=== PATIENT | female | born 1985 | race Caucasian/White ===

== ENCOUNTER 2016-04-28 08:37 | Day surgery (SDC) | payer MEDICAID, OTHER ==
[2016-04-28] MEDS ORDERED: CEFAZOLIN SODIUM 1 GM in NORMAL SALINE MINI-BAG+ 100 ML IV ONE ×2 (08:44→08:50)
[2016-04-28] MEDS ORDERED: LIDOCAINE HCL 1% 20 ML VIAL SUBCUT ONE ×2 (08:48→08:50)
[2016-04-28] MEDS ORDERED: MIDAZOLAM HCL 2 MG/2 ML SYR IV ONE ×2 (08:48→08:50)
[2016-04-28] MEDS ORDERED: ACETAMINOPHEN 1,000 MG/100 ML VIAL IV SCH ×2 (09:00)
[2016-04-28] MEDS ORDERED: FAMOTIDINE IN SALINE, ISO-OSM 20 MG/50 ML PIGGYBACK IV SCH (09:00)
[2016-04-28] MEDS ORDERED: LACTATED RINGERS 1,000 ML IV SCH ×3 (09:00→11:00)
[2016-04-28] MEDS ORDERED: MIDAZOLAM HCL 2 MG/2 ML VIAL ONE (09:22)
[2016-04-28] MEDS ORDERED: CEFAZOLIN SODIUM 1 GM/10 ML VIAL ONE (09:23)
[2016-04-28] MEDS ORDERED: ONDANSETRON HCL 4 MG/2 ML VIAL ONE (09:43)
[2016-04-28] MEDS ORDERED: DEXAMETHASONE 4 MG/ML VIAL ONE (09:43)
[2016-04-28] MEDS ORDERED: FENTANYL 100 MCG/2 ML VIAL ONE (09:43)
[2016-04-28] MEDS ORDERED: BUPIVACAINE/EPI 0.25% 1 VIAL VIAL ONE (09:50)
[2016-04-28] MEDS ORDERED: FENTANYL 100 MCG/2 ML VIAL IV PRN (10:36)
[2016-04-28] MEDS ORDERED: MORPHINE SULFATE 10 MG/ML SYR IV PRN (10:36)
[2016-04-28] MEDS ORDERED: ONDANSETRON HCL 4 MG/2 ML VIAL IV PRN (10:36)
[2016-04-28] MEDS ORDERED: KETOROLAC TROMETHAMINE 30 MG/ML VIAL ONE ×2 (10:36→10:50)
[2016-04-28] MEDS ORDERED: ROPIVACAINE HCL ONE (10:50)
[2016-04-28] MEDS ORDERED: MORPHINE SULFATE/PF 10 MG/10 ML VIAL ONE (10:50)
[2016-04-28 11:09] VITALS: TEMP 98.6
[2016-04-28 11:56] VITALS: RESP 16; O2SAT 94
[2016-04-28 11:58] VITALS: BP 106/70; PULSE 61
--- NOTE | 2016-04-28 16:29 | OPERATIVE REPORT ---
DATE OF SURGERY: 04/28/16 SURGEON: Jf Valderrama MD PREOPERATIVE DIAGNOSIS: Right lateral meniscal tear. POSTOPERATIVE DIAGNOSIS: Right lateral meniscal tear. PROCEDURE PERFORMED: Right knee arthroscopy and partial lateral meniscectomy. INDICATIONS FOR PROCEDURE: Patient is a 31-year-old female who injured her right knee while doing an exercise program. She had recurrent pain and mechanical symptoms of catching as well as recurrent swelling. A subsequent MRI revealed findings consistent with a tear in the lateral meniscus, and therefore she was taken to the operating room for right knee arthroscopy. SUMMARY: After informed consent was obtained, the patient was taken to the operating room where she was placed in the supine position under general anesthesia. After adequate anesthesia was achieved, the right knee and lower extremity were prepped and draped in the usual sterile fashion, the limb was gently exsanguinated, and a tourniquet was inflated about the proximal thigh to 275 mmHg. A standard anterolateral arthroscopic incision was then established and the arthroscope was then guided into the knee and directed into the suprapatellar pouch. The suprapatellar pouch was examined, and noted to be free of any loose bodies or other pathology. The articular surface of the patella was examined and noted to be free of any significant chondromalacia. Likewise, the femoral trochlea was free of any chondromalacia. The arthroscope was then guided into the medial gutter which was also noted to be free of any loose bodies or any pathology. The arthroscope was then guided into the anterior portion of the knee and directed medially, at which time the anteromedial incision was established under direct visualization. A synovectomy was performed in the anterior aspect of the knee in order to allow better visualization. Immediately it was noted that there was a small tear in the anterior horn of the lateral meniscus. The torn portion was resected and then shaved to a stable rim in that area. The anterior cruciate ligament was examined and tested with a probe and noted to be stable and intact. The arthroscope was then guided into the medial compartment at which time the medial meniscus was examined and noted to be stable and intact. Likewise, the remainder of the medial compartment was free of any additional pathology. The arthroscope was then guided into the lateral compartment, at which time it was noted that there was an extensive tear in the posterior horn of the lateral meniscus with a radial component as well as an extensive vertical component of the tear that was parallel to the contour of the meniscus. The torn portion was resected piecemeal using the meniscal instruments, and then it was shaved to a stable rim posteriorly. A second radial tear was also noted in the mid portion of the lateral meniscus. Once again, the torn portion of the meniscus was resected, and then it was shaved to a stable rim. The remainder of the lateral compartment was free of any additional pathology. The arthroscope was then guided into the lateral gutter, which was also noted to be free of any loose bodies or other pathology. The arthroscope was then guided back into the anterior portion of the knee, and hemostasis was achieved using the Arthrex radiofrequency wand. The arthroscope was then removed from the knee, and the excess fluid was drained. The knee was then injected with 20 mL of 0.25% Marcaine with epinephrine, and the incisions were each closed with a single 4-0 nylon suture. A lightly compressive sterile dressing was then applied, and the patient was taken to the recovery room in stable condition. ESTIMATED BLOOD LOSS: Minimal. FLUIDS: Lactated ringers 700 mL. TOURNIQUET TIME: 33 minutes. [facility]
--- NOTE | 2016-04-30 09:28 | PREOPERATIVE H&P ---
History of Present Illness (Jf Valderrama MD; 03/30/2016 3:22 PM) The patient is a 30 year old female. The patient is here for a follow-up after undergoing an MRI of her right knee. She is here to review the results. She reports that she is still having pain in that knee, especially with standing knee flexion. Allergies (Katie Acuña MA; 03/30/2016 2:58 PM) No Known Drug Allergies Family History (Katie Acuña MA; 03/30/2016 2:58 PM) Brother Brother, In good health. Paternal Grandfather Lung cancer Father Father, In stable health. Fell 2 years ago , still having trouble walking due to old injury Mother Mother, In good health. Social History (Katie Acuña MA; 03/30/2016 2:58 PM) No drug use Tobacco use Never smoker. Alcohol use Occasional alcohol use. not while Medication History (Katie Acuña MA; 03/30/2016 2:58 PM) DiazePAM (5MG Tablet, 1 (one) Tablet Oral 1/2-1 po 1/2 hour prior to imaging, may repeat if needed x1, Taken starting 03/24/2016) Active. Penicillin V Potassium (250MG Tablet, 1 Oral every 6 hours) Active. (for dental procedure) Medications Reconciled Vitals (Katie Acuña MA; 03/30/2016 3:01 PM) 03/30/2016 3:00 PM Weight: 177.44 lb Height: 64in Weight Measurement Declined Body Surface Area: 1.86 m Body Mass Index: 30.46 kg/m Temp.: 97.1F(Temporal) Pulse: 92 (Regular) Resp.: 16 (Unlabored) BP: 102/64 (Sitting, Left Arm, Standard) Physical Exam (Jf Valderrama MD; 03/30/2016 3:23 PM) Musculoskeletal Physical examination today's essentially unchanged. X-ray evaluation: We reviewed her MRI, and she has a moderate effusion. Her cruciate ligaments are intact as are her collateral ligaments. There is no evidence of medial meniscal injury. However, she has a linear signal change within the posterior horn of the lateral meniscus consistent with a radial tear. She also has fairly extensive signal change within the tibial metaphysis consistent with bone bruising. Assessment & Plan (Jf Valderrama MD; 03/30/2016 3:24 PM) Acute lateral meniscus tear of right knee (S83.281A) Plan: We discussed treatment options, and the patient does wish to proceed with knee arthroscopy. We will therefore schedule her procedure, and then plan on performing her preoperative evaluation on the date of surgery. Signed by Jf Valderrama MD (03/30/2016 3:25 PM) [facility]
== END 2016-04-28 11:49 | disposition home or self-care (01) ==
LOC: SDS 08:37
PROVIDERS: ATTEND Orthopaedic Surgery
DX: S83.281A Other tear of lateral meniscus, current injury, right knee, initial encounter (principal); X50.9XXA Other and unspecified overexertion or strenuous movements or postures, initial encounter; E55.9 Vitamin D deficiency, unspecified; E04.9 Nontoxic goiter, unspecified
CPT/HCPCS: 84703; J0171; J0690; J1885; J2250; J2405; J2795